=== PATIENT | male | born 2000 | race Two or more races ===

== ENCOUNTER 2023-05-15 22:15 | Emergency (ER) | payer OTHER ==
[~2023-05-15] VITALS: Ht 160 cm; Wt 54.4 kg
[~2023-05-15 22:15] MED LIST: ALBU90OI INH; CYCL10 PO; IBUP600 PO; Keflex500 MG PO; Naprosyn500 MG PO; Norco 5-325 Ta1 EACH PO; SPACE CHAMBER1 EACH MC; Zithromax250 MG PO; Zofran Odt8 MG SL
[2023-05-15 22:53] LABS: BASOPHILS ABSOLUTE AUTO 0.03 K/mm3 (0.00-0.23); BASOPHILS PERCENT AUTO 1 % (0-2); EOSINOPHILS ABSOLUTE AUTO 0.01 K/mm3 (0.00-0.68); EOSINOPHILS PERCENT AUTO 0 % (0-6); Hematocrit 37.7 % (37.0-53.0); Hemoglobin 12.9 g/dL (13.5-17.5); IMMATURE GRAN ABSOLUTE AUTO 0.01 K/mm3 (0.00-0.10); IMMATURE GRAN PERCENT AUTO 0 % (0-1); LYMPHOCYTES ABSOLUTE AUTO 0.77 K/mm3 (0.84-5.20); LYMPHOCYTES PERCENT AUTO 14 % (21-46); MONOCYTES ABSOLUTE AUTO 1.07 K/mm3 (0.16-1.47); MONOCYTES PERCENT AUTO 20 % (4-13); Mean Corpuscular HGB 28.5 pg (26.0-34.0); Mean Corpuscular HGB Conc 34.2 g/dL (31.5-36.5); Mean Corpuscular Volume 83 fL (80-100); NEUTROPHILS ABSOLUTE AUTO 3.52 K/mm3 (1.96-9.15); NEUTROPHILS PERCENT AUTO 65 % (41-73); Platelet Count 281 K/mm3 (150-400); RDW Coefficient Variation 12.5 % (11.7-14.2); RDW Standard Deviation 38.2 fL (35.1-46.3); Red Blood Cell Count 4.53 M/mm3 (4.30-5.90); White Blood Cell Count 5.41 K/mm3 (4.00-11.30)
[2023-05-15 23:42] LABS: Albumin, Blood 3.9 g/dL (3.4-5.0); Albumin/Globulin Ratio 1.1 (0.8-1.8); Bilirubin, Total 0.5 mg/dL (0.1-1.0); Bun/Creatinine Ratio 10.8 (12.0-20.0); Calcium, Blood 8.9 mg/dL (8.5-10.1); Creatinine, Blood 1.02 mg/dL (0.60-1.20); Globulin, Blood 3.4 g/dL (2.2-4.0); Potassium, Blood 3.3 mmol/L (3.5-5.5); Total Protein, Blood 7.3 g/dL (6.4-8.2)
[2023-05-16 00:28] LABS: Influenza A, PCR NEGATIVE (NEGATIVE); Influenza B, PCR NEGATIVE (NEGATIVE); Resp Syncytial Virus, PCR NEGATIVE (NEGATIVE)
[2023-05-16 00:38] VITALS: BP 98/71
[2023-05-16 00:40] LABS: SARS-Cov-2 (COVID-19) PCR, MMC POSITIVE (NEGATIVE)
== END 2023-05-16 00:54 | disposition home or self-care (01) ==
LOC: ER 22:15
PROVIDERS: Student in an Organized Health Care Education/Training Program
DX: U07.1 COVID-19 (principal); Z91.018 Allergy to other foods; J45.909 Unspecified asthma, uncomplicated; F17.210 Nicotine dependence, cigarettes, uncomplicated
CPT/HCPCS: 0241U; 80053; 85025; 96374; 96375; 99284-25; A9270; J0780; J1200; J1885; J2405; J7030

== ENCOUNTER 2024-12-22 09:54 | Emergency (ER) | payer OTHER ==
[~2024-12-22] VITALS: Ht 160 cm; Wt 63.5 kg
[2024-12-22 10:13] VITALS: BP 112/61
[2024-12-22] MEDS ORDERED: Ondansetron 4 MG SoluTab SL ONE (10:15)
[2024-12-22] MEDS ORDERED: Acetaminophen 500 MG Tab PO ONE (10:15)
[2024-12-22 11:11] LABS: CORONAVIRUS COVID-19 AG Positive (NEGATIVE); INFLUENZA A AG Negative (NEGATIVE); INFLUENZA B AG Negative (NEGATIVE)
[2024-12-22] MEDS ORDERED: Ibuprofen 600 MG Tab PO ONE (11:15)
[2024-12-22] MEDS ORDERED: ONDA4ODT MM (12:02)
== END 2024-12-22 12:03 | disposition home or self-care (01) ==
LOC: ER 09:54
PROVIDERS: Emergency Medicine
DX: U07.1 COVID-19 (principal); F17.210 Nicotine dependence, cigarettes, uncomplicated; J45.909 Unspecified asthma, uncomplicated; Z91.018 Allergy to other foods
CPT/HCPCS: 87428-QW; 99283; A9270